=== PATIENT | male | born 1955 | race Hispanic/Latino ===

== ENCOUNTER → 2018-06-04 | Outpatient (CLI) | payer MEDICARE ==
[~2018-06-04] MED LIST: ALBUTEROL SULFAT2 MG PO; ASPIR-LOW81 MG PO; ATROPINE S0.4 MG/1 M PO; AUGMENTIN 875-1 EACH PO; CLONAZEPAM1 MG PO; FERROUS SULFAT325 MG PO; FUROSEMIDE40 MG PO; GABAPENTIN300 MG PO; HUMULIN-R100 UNITS/ SC; HYDROXYZINE HCL25 MG PO; ISOSORBIDE MONO30 MG PO; MELOXICAM7.5 MG PO; METFORMIN HCL500 MG PO; METHYLPREDNISOL40 MG IV; METOCLOPRAMIDE10 MG PO; NORCO 10-325 T1 EACH PO; OMEPRAZOLE40 MG PO; PREDNISONE20 MG PO; SIMVASTATIN20 MG PO; SUCRALFATE1 GM PO; SYMBICORT 16010.2 GM INH; TERBINAFINE HC250 MG PO; ULTRAM50 MG PO; VASOTEC10 M1 PO; WARFARIN SODIU2.5 MG PO
[2018-06-04 12:15] LABS: BASOPHILS # (AUTO) 0.2 (0.0-0.1); BASOPHILS % 1.2 % (0.0-1.0); EOSINOPHILS # (AUTO) 0.6 (0.0-0.4); HEMATOCRIT 38.6 % (38.2-49.6); HEMOGLOBIN 12.6 g/dL (14.0-18.0); LYMPHOCYTES # (AUTO) 2.7 (1.0-3.2); LYMPHOCYTES % 18.4 % (18.0-39.1); MEAN CORPUSCULAR HEMOGLOBIN 29.7 pg (28-32); MEAN CORPUSCULAR HGB CONC 32.6 g/dL (31-35); MONOCYTES # (AUTO) 0.9 (0.2-0.8); MONOCYTES % 6.2 % (4.4-11.3); NEUTROPHILS # (AUTO) 9.8 (2.1-6.9); NEUTROPHILS % 67.5 % (38.7-80.0); PLATELET COUNT 503 x10e3/uL (140-360); RED BLOOD COUNT 4.24 x10e6/uL (4.3-5.7); RED CELL DISTRIBUTION WIDTH 14.6 % (11.7-14.4)
[2018-06-27 12:27] LABS: BASOPHILS # (AUTO) 0.1 (0.0-0.1); BASOPHILS % 0.3 % (0.0-1.0); EOSINOPHILS # (AUTO) 0.2 (0.0-0.4); EOSINOPHILS % 1.3 % (0.0-6.0); HEMATOCRIT 38.1 % (38.2-49.6); LYMPHOCYTES # (AUTO) 3.2 (1.0-3.2); LYMPHOCYTES % 18.2 % (18.0-39.1); MEAN CORPUSCULAR HEMOGLOBIN 30.2 pg (28-32); MEAN CORPUSCULAR HGB CONC 34.1 g/dL (31-35); MEAN CORPUSCULAR VOLUME 88.6 fL (81-99); MONOCYTES # (AUTO) 1.1 (0.2-0.8); MONOCYTES % 6.3 % (4.4-11.3); NEUTROPHILS # (AUTO) 12.4 (2.1-6.9); NEUTROPHILS % 69.8 % (38.7-80.0); PLATELET COUNT 404 x10e3/uL (140-360); RED CELL DISTRIBUTION WIDTH 13.8 % (11.7-14.4)
--- OUTSIDE RECORDS SUMMARY | 2018-07-04 08:41 | XMS REPORT ---
Author [facility] Address Unknown Phone Unavailable Care Team Providers Care Restaurant Hostess Name Role Phone Shanthi LOUISE Unavailable Unavailable Payers Payer Name Policy Type Policy Number Effective Date Expiration Date Problems This patient has no known problems. Allergies, Adverse Reactions, Alerts Allergy Name Allergy Type Status Severity Reaction(s) Onset Date Inactive Date Treating Clinician Comments No Known Allergies DA Active U 2016-01-07 00:00:00 Medications This patient has no known medications. Results Test Description Test Time Test Comments Text Results Atomic Results Result Comments CT ABDOMEN/PELVIS W 2018-06-08 08:23:00 [place] [address] Patient Name: GAEL HOANG MR #: [id number] : 1955 Age/Sex: 62/M Req #: [id number] Adm Physician: Ordered by: CRISTIANE LOUISE MD Report #: [id number] Location: CT Room/Bed: Procedure: [id number] CT/CT ABDOMEN/PELVIS W Exam Date: 06/07/18 Exam Time: 1727 REPORT STATUS: Signed EXAM: CT Abdomen and Pelvis WITH contrast IN DICATION: Pain COMPARISON: None. TECHNIQUE: Abdomen and Pelvis was scanned utilizing a multidetector helical scanner after administration of IV contrast. Coronal and sagittal reformations were obtained. IV CONTRAST: 100 mL Isovue-370 COMPLICATIONS: None RADIATION DOSE: Total DLP:649 mGy*cm Estimated effective dose: (DLP x 0.015 x size factor) mSv CTDIvol has been reviewed. It is below the limits set by the Radiation Protocol Committee (RPC). Appropriate CT dose reduction techniques were utilized. FINDINGS: Abdomen: Lung Bases: No acute findings. Solid Organs: Liver, adrenals, kidneys, spleen, and atrophic pancreas unremarkable. Upper GI Tract: No small bowel obstructive changes. Mild wall thickening of the stomach statistically due to partial decompression. No inflammatory changes. Vascularity: Mild aortic vascular calcifications with no aneurysm. Lymph Nodes: No suspicious adenopathy. Other: Moderate fat-containing umbilical hernia. Pelvis: Bladder: [place] artifact from hip limits evaluation. Other: None. Colon: Moderate stool. Appendix not inflamed. Bones: No acute findings. IMPRESSION: 1. No acute findings in the abdomen or pelvis. 2. See above for full details. Signed by: Dr. Gilles Ferguson MD on 06/08/2018 8:25 AM Dictated By: GILLES FERGUSON MD 4 Transcribed By: JARRETT on 06/08/18824 COPY TO: CRISTIANE LOUISE MD
== END ==
LOC: LAB 05:00 → OR 07-04 08:40 → EDSTATUS 07-04 11:00
PROVIDERS: ATTEND Internal Medicine
DX: Z01.818 Encounter for other preprocedural examination (principal); K92.2 Gastrointestinal hemorrhage, unspecified; K21.9 Gastro-esophageal reflux disease without esophagitis; R14.0 Abdominal distension (gaseous); R10.9 Unspecified abdominal pain; D64.9 Anemia, unspecified; Z53.8 Procedure and treatment not carried out for other reasons
CPT/HCPCS: 36415; 85025; 93005

== ENCOUNTER → 2018-06-07 | Outpatient (CLI) | payer MEDICARE ==
[~2018-06-07] MED LIST changes: +IOPAMIDOL 370 MG/ML 200 ML INFUS..BTL INJ ONE; +SODIUM CHLORIDE 0.9% 50ML 50 ML ONE
[2018-06-07 17:04] LABS: BLOOD UREA NITROGEN 16 mg/dL (7-26); BUN/CREATININE RATIO 20 (6-25); EST GLOMERULAR FILTRATION RATE > 60 ML/MIN (60-)
--- NOTE | 2018-06-08 08:29 | Diagnostic Imaging Report ---
EXAM: CT Abdomen and Pelvis WITH contrast INDICATION: Pain COMPARISON: None. TECHNIQUE: Abdomen and Pelvis was scanned utilizing a multidetector helical scanner after administration of IV contrast. Coronal and sagittal reformations were obtained. IV CONTRAST: 100 mL Isovue-370 COMPLICATIONS: None RADIATION DOSE: Total DLP:649 mGy*cm Estimated effective dose: (DLP x 0.015 x size factor) mSv CTDIvol has been reviewed. It is below the limits set by the Radiation Protocol Committee (RPC). Appropriate CT dose reduction techniques were utilized. FINDINGS: Abdomen: Lung Bases: No acute findings. Solid Organs: Liver, adrenals, kidneys, spleen, and atrophic pancreas unremarkable. Upper GI Tract: No small bowel obstructive changes. Mild wall thickening of the stomach statistically due to partial decompression. No inflammatory changes. Vascularity: Mild aortic vascular calcifications with no aneurysm. Lymph Nodes: No suspicious adenopathy. Other: Moderate fat-containing umbilical hernia. Pelvis: Bladder: [place] artifact from hip limits evaluation. Other: None. Colon: Moderate stool. Appendix not inflamed. Bones: No acute findings. IMPRESSION: 1. No acute findings in the abdomen or pelvis. 2. See above for full details. Signed by: Dr. Gilles Ferguson MD on 06/08/2018 8:25 AM
== END ==
LOC: CT 15:47
PROVIDERS: ATTEND Internal Medicine
DX: K21.9 Gastro-esophageal reflux disease without esophagitis (principal); R14.0 Abdominal distension (gaseous); R10.9 Unspecified abdominal pain; K92.2 Gastrointestinal hemorrhage, unspecified; D64.9 Anemia, unspecified
CPT/HCPCS: 36415; 74177; 82565; 84520; Q9967